=== PATIENT | female | born 1990 | race Two or more races ===

== ENCOUNTER 2024-08-19 18:00 | Emergency (ER) | payer OTHER ==
[~2024-08-19] VITALS: Ht 162.6 cm; Wt 81.0 kg
[2024-08-19 18:13] VITALS: BP 142/95; PULSE 81; RESP 18; TEMP 98.1; O2SAT 99
== END 2024-08-20 01:04 | disposition home or self-care (01) ==
LOC: ER 18:00
DX: S60.221A Contusion of right hand, initial encounter (principal); F31.9 Bipolar disorder, unspecified; Z88.0 Allergy status to penicillin; Z90.710 Acquired absence of both cervix and uterus; W18.30XA Fall on same level, unspecified, initial encounter; W18.39XA Other fall on same level, initial encounter; Y93.89 Activity, other specified; Y92.89 Other specified places as the place of occurrence of the external cause; Y99.8 Other external cause status
CPT/HCPCS: 73130; 99283

== ENCOUNTER → 2024-09-06 | Emergency (ER) | payer OTHER ==
[~2024-09-06] VITALS: Ht 157.5 cm; Wt 73.0 kg
[2024-09-06 10:27] VITALS: O2SAT 98
[2024-09-06 11:27] LABS: HEMATOCRIT. 40.9 % (36.0-48.0); HEMOGLOBIN. 12.9 g/dL (12.0-16.0); MEAN CORPUSCULAR HEMOGLOBIN 26.2 pg (28.0-32.0); MEAN CORPUSCULAR HGB CONC 31.5 g/dL (31.0-37.0); MEAN PLATELET VOLUME 9.2 fl (7.4-10.4); PLATELET 223 x1000/uL (130-400); RED BLOOD CELL COUNT 4.92 mill/uL (4.2-5.4); RED CELL DISTRIBUTION WIDTH 13.4 % (11.6-14.6); WHITE BLOOD COUNT 13.1 x1000/uL (4.5-11.0)
[2024-09-06 11:41] LABS: DIFFERENTIAL COMMENT 1
[2024-09-06 11:49] LABS: CHLORIDE 102 mEq/L (98-107); SODIUM 137 mEq/L (136-145)
[2024-09-06 11:52] LABS: CALCIUM 9.6 mg/dL (8.7-10.4); CARBON DIOXIDE 28 mEq/L (21-32)
[2024-09-06 11:57] LABS: GLUCOSE 103 mg/dL (70-105); UREA NITROGEN BLOOD 12 mg/dL (9-23)
[2024-09-06 11:58] LABS: ALANINE AMINOTRANSFERASE 9 IU/L (10-49)
[2024-09-06 11:59] LABS: ALBUMIN 4.4 g/dL (3.2-4.8); ASPARTATE AMINOTRANSFERASE 14 IU/L (<34); BILIRUBIN DIRECT 0.1 mg/dL (<=3.0); BILIRUBIN TOTAL 0.6 mg/dL (0.1-1.0); PROTEIN TOTAL 7.1 g/dL (6.0-8.3)
[2024-09-06 12:26] LABS: CLARITY URINE TURBID (CLEAR); COLOR URINE YELLOW (YELLOW); GLUCOSE URINE NEGATIVE (NEGATIVE); KETONES URINE NEGATIVE (NEGATIVE); LEUKOCYTE ESTERASE URINE 3+ (NEGATIVE); NITRITE URINE POSITIVE (NEGATIVE); OCCULT BLOOD URINE 1+ (NEGATIVE); PH URINE 6.5 (4.5-8.0); PROTEIN URINE TRACE (NEGATIVE); SPECIFIC GRAVITY URINE 1.016 (1.005-1.030); UROBILINOGEN URINE 0.2 E.U./dL (0.2-1.0)
[2024-09-06 12:44] LABS: BACTERIA URINE 3+; SQUAMOUS EPITHELIAL CELL URINE 1+ /lpf (RARE/1+); WBC URINE TNTC /hpf (0-2); YEAST URINE NONE SEEN
[2024-09-06 13:07] LABS: PLATELET ESTIMATE NORMAL
[2024-09-06] MEDS: PHENAZOPYRIDINE HCL 100MG TABLET PO ONE (16:54)
[2024-09-06] MEDS: KETOROLAC 30MG/ML VIAL IV ONE (16:54)
[2024-09-06] MEDS: SODIUM CHLORIDE 0.9% (SEPSIS BOLUS) IV ONE (16:56)
[2024-09-06] MEDS: LEVOFLOXACIN 500MG PREMIX 100 ML IV ONE (16:56)
[2024-09-06 22:31] VITALS: TEMP 36.66960; O2SAT 100
[2024-09-06 22:37] VITALS: BP 115/64; PULSE 110; RESP 14; TEMP 98
== END ==
LOC: ER 10:22 → UNDOADMIN 17:44 → 5WST 17:44 → EDBEDREQ 17:55 → UNDODISIN 09-07 00:42
DX: A41.9 Sepsis, unspecified organism (principal); R65.20 Severe sepsis without septic shock; N39.0 Urinary tract infection, site not specified; F31.9 Bipolar disorder, unspecified; Z88.1 Allergy status to other antibiotic agents; Z88.2 Allergy status to sulfonamides; Z90.710 Acquired absence of both cervix and uterus; Z88.0 Allergy status to penicillin
CPT/HCPCS: 99284; 96365; 96375; 80076; 80048; 81003; 83605; 83690; 85025; 87040; 87086; 87186; 87077; 36415; 84145; J1956; J1885; J7030; 99285